=== PATIENT | male | born 1965 | race Caucasian/White ===

== ENCOUNTER → 2018-06-05 | Outpatient (CLI) | payer OTHER | LOC: M SMT 10:52 | PROVIDERS: ATTEND Nurse Practitioner Women's Health | DX: C61 Malignant neoplasm of prostate (principal) | CPT/HCPCS: 36415; 84153; 84403; 96402; G0463; J9217 ==

== ENCOUNTER → 2018-08-09 | Outpatient (CLI) | payer OTHER | LOC: M SMT 11:18 | PROVIDERS: ATTEND Urology | DX: R97.20 Elevated prostate specific antigen [PSA] (principal) ==

== ENCOUNTER → 2018-10-17 | Outpatient (CLI) | payer OTHER ==
[2018-10-17 17:52] LABS: PROSTATIC SPECIFIC AG MONITOR 2.76 NG/ML (< 4.00)
== END ==
LOC: M SMT 13:44
PROVIDERS: ATTEND Nurse Practitioner Women's Health
DX: C61 Malignant neoplasm of prostate (principal)

== ENCOUNTER → 2019-01-31 | Outpatient (CLI) | payer OTHER | LOC: M SMT 13:15 | PROVIDERS: ATTEND Nurse Practitioner Women's Health | DX: C61 Malignant neoplasm of prostate (principal) ==

== ENCOUNTER → 2019-04-18 | Outpatient (CLI) | payer OTHER | LOC: M PLALAB 14:59 | PROVIDERS: ATTEND Urology | DX: C61 Malignant neoplasm of prostate (principal) | CPT/HCPCS: 36415; 84153; 84403; G0463 ==

== ENCOUNTER → 2019-08-05 | Outpatient (REF) | payer OTHER | LOC: M LABSMT 11:58 | PROVIDERS: ATTEND Urology | DX: C61 Malignant neoplasm of prostate (principal) ==

== ENCOUNTER → 2019-10-25 | Outpatient (CLI) | payer OTHER | LOC: M PLALAB 12:34 | PROVIDERS: ATTEND Urology | DX: C61 Malignant neoplasm of prostate (principal) ==

== ENCOUNTER → 2020-01-17 | Outpatient (REF) | payer OTHER | LOC: M PLALAB 09:27 | PROVIDERS: ATTEND Urology | DX: C61 Malignant neoplasm of prostate (principal) | CPT/HCPCS: 36415; 84153; 96402; J9217 ==

== ENCOUNTER → 2020-04-22 | Outpatient (REF) | payer OTHER | LOC: M LABSMT 12:31 | PROVIDERS: ATTEND Urology | DX: C61 Malignant neoplasm of prostate (principal) ==

== ENCOUNTER → 2020-08-18 | Outpatient (REF) | payer OTHER ==
[2020-08-18 12:16] LABS: PROSTATIC SPECIFIC AG MONITOR 0.68 NG/ML (< 4.00)
== END ==
LOC: M PLALAB 11:02
PROVIDERS: ATTEND Urology
DX: C61 Malignant neoplasm of prostate (principal)

== ENCOUNTER → 2020-10-14 | Outpatient (CLI) | payer OTHER | LOC: M PLALAB 13:20 | PROVIDERS: ATTEND Urology | DX: C61 Malignant neoplasm of prostate (principal) ==

== ENCOUNTER → 2021-02-12 | Outpatient (CLI) | payer OTHER ==
[2021-02-12 15:09] LABS: PROSTATIC SPECIFIC AG MONITOR 0.71 NG/ML (< 4.00)
== END ==
LOC: M PLALAB 12:13
PROVIDERS: ATTEND Urology
DX: C61 Malignant neoplasm of prostate (principal)

== ENCOUNTER → 2021-04-21 | Outpatient (CLI) | payer OTHER | LOC: M PLALAB 11:00 | PROVIDERS: ATTEND Urology | DX: C61 Malignant neoplasm of prostate (principal) ==

== ENCOUNTER → 2021-08-13 | Outpatient (CLI) | payer OTHER | LOC: M PLALAB 12:49 | PROVIDERS: ATTEND Urology | DX: C61 Malignant neoplasm of prostate (principal) ==

== ENCOUNTER → 2022-01-14 | Outpatient (REF) | payer OTHER ==
[2022-01-14 18:23] LABS: PROSTATIC SPECIFIC AG MONITOR 0.46 NG/ML (< 4.00)
== END ==
LOC: M SMT 16:44
PROVIDERS: ATTEND Urology
DX: C61 Malignant neoplasm of prostate (principal)

== ENCOUNTER → 2022-05-17 | Outpatient (CLI) | payer OTHER ==
[2022-05-17 18:00] LABS: PROSTATIC SPECIFIC AG MONITOR 0.29 NG/ML (< 4.00)
== END ==
LOC: M PLALAB 14:54
PROVIDERS: ATTEND Urology
DX: C61 Malignant neoplasm of prostate (principal)

== ENCOUNTER 2022-08-21 13:27 | Emergency (ER) | payer OTHER ==
[~2022-08-21] VITALS: Ht 182.9 cm; Wt 116.6 kg
[2022-08-21 13:29] VITALS: BP 142/85
[2022-08-21] MEDS ORDERED: NS 1,000 ML IV ONE (14:55)
[2022-08-21 15:17] LABS: BASO % 0.4 % (0.0-1.0); EOS % 0.4 % (0.0-3.0); HEMATOCRIT 47.7 % (42.0-52.0); LYMPH # 1.2 10^3/uL (1.5-5.0); LYMPH % 24.2 % (24.0-44.0); MEAN CORPUSCULAR HGB CONC 33.5 g/dl (32.0-36.5); MEAN CORPUSCULAR VOLUME 86.6 fl (80.0-96.0); MONO # 0.6 10^3/uL (0.0-0.8); NEUTROPHILS % 62.8 % (36.0-66.0); PLATELET COUNT, AUTOMATED 163 10^3/uL (150-450); RED BLOOD COUNT 5.51 10^6/uL (4.30-6.10); WHITE BLOOD COUNT 4.8 10^3/uL (4.0-10.0)
[2022-08-21 15:46] LABS: ALBUMIN 3.8 G/DL (3.2-5.2); ALKALINE PHOSPHATASE 64 U/L (46-116); ALT/SGPT 228 U/L (7.0-40); AST/SGOT 97 U/L (<34); BILIRUBIN,DIRECT 0.2 MG/DL (<0.4); BILIRUBIN,TOTAL 0.7 MG/DL (0.3-1.2); BLOOD UREA NITROGEN 22 MG/DL (9-23); CALCIUM LEVEL 8.6 MG/DL (8.5-10.1); CARBON DIOXIDE LEVEL 27 MMOL/L (20-31); CHLORIDE LEVEL 102 MMOL/L (98-107); CREATININE FOR GFR 1.17 MG/DL (0.70-1.30); GLOMERULAR FILTRATION RATE > 60.0 (>56); GLUCOSE, FASTING 79 MG/DL (60-100); POTASSIUM SERUM 3.9 MMOL/L (3.5-5.1); SODIUM LEVEL 137 MMOL/L (136-145); TOTAL PROTEIN 6.8 G/DL (5.7-8.2)
== END 2022-08-21 18:21 | disposition home or self-care (01) ==
LOC: M ED 13:27
DX: K76.0 Fatty (change of) liver, not elsewhere classified (principal); R16.0 Hepatomegaly, not elsewhere classified; R74.01 Elevation of levels of liver transaminase levels; K82.8 Other specified diseases of gallbladder; K82.4 Cholesterolosis of gallbladder

== ENCOUNTER → 2022-11-30 | Outpatient (CLI) | payer OTHER ==
[2022-11-30 14:45] LABS: PROSTATIC SPECIFIC AG MONITOR 0.35 NG/ML (< 4.00)
== END ==
LOC: M PLALAB 11:47
PROVIDERS: ATTEND Urology
DX: C61 Malignant neoplasm of prostate (principal)

== ENCOUNTER → 2023-02-16 | Outpatient (CLI) | payer OTHER ==
[2023-02-16 14:25] LABS: PROSTATIC SPECIFIC AG MONITOR 0.4 NG/ML (< 4.00)
== END ==
LOC: M PLALAB 11:38
PROVIDERS: ATTEND Urology
DX: C61 Malignant neoplasm of prostate (principal)

== ENCOUNTER → 2023-05-17 | Outpatient (CLI) | payer OTHER ==
[2023-05-17 10:52] LABS: PROSTATIC SPECIFIC AG MONITOR 0.53 NG/ML (< 4.00)
== END ==
LOC: M PLALAB 08:09
PROVIDERS: ATTEND Urology
DX: C61 Malignant neoplasm of prostate (principal)

== ENCOUNTER → 2023-09-29 | Outpatient (CLI) | payer OTHER ==
[2023-09-29 13:38] LABS: PROSTATIC SPECIFIC AG MONITOR 1.02 NG/ML (< 4.00)
== END ==
LOC: M PLALAB 10:42
PROVIDERS: ATTEND Urology
DX: C61 Malignant neoplasm of prostate (principal); E29.1 Testicular hypofunction

== ENCOUNTER → 2024-03-22 | Outpatient (CLI) | payer OTHER ==
[2024-03-22 10:05] LABS: PROSTATIC SPECIFIC AG MONITOR 0.67 NG/ML (< 4.00)
== END ==
LOC: M PLALAB 08:53
PROVIDERS: ATTEND Urology
DX: C61 Malignant neoplasm of prostate (principal); E29.1 Testicular hypofunction

== ENCOUNTER → 2024-05-27 | Outpatient (CLI) | payer OTHER ==
[2024-05-27 19:05] LABS: PROSTATIC SPECIFIC AG MONITOR 0.92 NG/ML (< 4.00)
== END ==
LOC: M PLALAB 15:39
PROVIDERS: ATTEND Urology
DX: C61 Malignant neoplasm of prostate (principal)

== ENCOUNTER → 2024-08-09 | Outpatient (CLI) | payer OTHER ==
[2024-08-09 18:54] LABS: PROSTATIC SPECIFIC AG MONITOR 1.16 NG/ML (< 4.00)
== END ==
LOC: M PLALAB 15:24
PROVIDERS: ATTEND Urology
DX: C61 Malignant neoplasm of prostate (principal)

== ENCOUNTER → 2025-02-24 | Outpatient (CLI) | payer OTHER ==
[2025-02-24 16:26] LABS: PROSTATIC SPECIFIC AG MONITOR 3.26 NG/ML (< 4.00)
[2025-02-24 16:29] LABS: TESTOSTERONE 294.0 NG/DL (241-827)
== END ==
LOC: M PLALAB 12:24
PROVIDERS: ATTEND Urology
DX: C61 Malignant neoplasm of prostate (principal)

== ENCOUNTER → 2025-02-27 | Outpatient (REF) | payer OTHER ==
[2025-02-27 17:50] LABS: APPEARANCE, URINE CLEAR (CLEAR); BACTERIA, URINE AUTO NEGATIVE (NEGATIVE); BILIRUBIN, URINE AUTO NEGATIVE (NEGATIVE); BLOOD, URINE BLOOD NEGATIVE (NEGATIVE); GLUCOSE, URINE (UA) AUTO NEGATIVE (NEGATIVE); KETONE, URINE AUTO NEGATIVE (NEGATIVE); LEUKOCYTE ESTERASE, URINE AUTO NEGATIVE (NEGATIVE); MUCUS, URINE SMALL (NEGATIVE); NITRITE, URINE AUTO NEGATIVE (NEGATIVE); PROTEIN, URINE AUTO NEGATIVE (NEGATIVE); RBC, URINE AUTO 1 /HPF (0-3); SPECIFIC GRAVITY URINE AUTO 1.023 (1.002-1.035); SQUAMOUS EPITHELIAL CELL UR AU 0 /HPF (0-6); UROBILINOGEN, URINE AUTO 2.0 mg/dL (0.0-2.0); WBC, URINE AUTO 1 /HPF (0-3)
== END ==
LOC: M LABSMT 13:42
PROVIDERS: ATTEND Urology
DX: R97.20 Elevated prostate specific antigen [PSA] (principal)